=== PATIENT | female | born 1990 | race Caucasian/White ===

== ENCOUNTER 2021-12-26 11:04 | Emergency (ER) | payer MEDICAID ==
[2021-12-26] MEDS ORDERED: Sodium Chloride 0.9% 1,000 ML IV ONE (12:06)
[2021-12-26] MEDS ORDERED: Ketorolac 30 MG/ML SDV IVPUSH ONE (12:06)
[2021-12-26] MEDS ORDERED: Sodium Chloride 0.9% 2.5 ML Syringe FLUSH PRN (12:06)
[2021-12-26] MEDS ORDERED: Ondansetron 4 MG/2 ML SDV IVPUSH ONE (12:06)
[2021-12-26] MEDS ORDERED: Sodium Chloride 0.9% 10 ML Syringe FLUSH PRN (12:06)
[2021-12-26 13:52] LABS: CARBON DIOXIDE,CO2 28.8 mmol/L (21.0-32.0); POTASSIUM,K 3.5 mmol/L (3.5-5.1)
== END 2021-12-26 14:21 | disposition home or self-care (01) ==
LOC: MW.ED 11:04
DX: K80.20 Calculus of gallbladder without cholecystitis without obstruction (principal); K21.9 Gastro-esophageal reflux disease without esophagitis; F17.210 Nicotine dependence, cigarettes, uncomplicated
CPT/HCPCS: 36415; 76705; 80053; 81001; 81025; 85025; 96361; 96374; 96375; 99284; J1885; J2405; J3490; J7030

== ENCOUNTER 2022-02-26 04:28 | Inpatient (IN) | payer SELFPAY ==
[2022-02-26] MEDS ORDERED: Morphine 4 MG/ML VIAL IVPUSH ONE ×2 (04:44→06:42)
[2022-02-26] MEDS ORDERED: Lactated Ringers 1,000 ML IV STA (04:44)
[2022-02-26] MEDS ORDERED: Ondansetron 4 MG/2 ML SDV IVPUSH ONE (04:44)
[2022-02-26 05:34] LABS: CARBON DIOXIDE,CO2 29.1 mmol/L (21.0-32.0); POTASSIUM,K 3.8 mmol/L (3.5-5.1)
[2022-02-26] MEDS ORDERED: Iopamidol 755 MG/ML 500 ML Multipack Bottle IVPUSH STA (05:58)
[2022-02-26] MEDS ORDERED: cefTRIAXone 2 GM in Premix Bag 1 BAG IV ONE (06:39)
[2022-02-26] MEDS ORDERED: cefTRIAXone 2 GM/50 ML BAG ONE ×2 (06:42→06:43)
[2022-02-26] MEDS ORDERED: Morphine 2 MG/ML SYRINGE IVPUSH PRN (14:25)
[2022-02-26] MEDS ORDERED: Ondansetron 4 MG Tab.DIS PO PRN (14:25)
[2022-02-26] MEDS: Piperacillin/Tazobactam 3.375 GM in Sodium Chloride 0.9% 50 ML IV SCH ×2 (15:52→21:03)
[2022-02-27] MEDS: Piperacillin/Tazobactam 3.375 GM in Sodium Chloride 0.9% 50 ML IV SCH ×4 (03:03→21:30)
[2022-02-27 07:49] LABS: CARBON DIOXIDE,CO2 26.8 mmol/L (21.0-32.0); POTASSIUM,K 3.7 mmol/L (3.5-5.1)
[2022-02-27] MEDS: Acetaminophen/HYDROcodone 325-5 MG Tab PO PRN (15:56)
[2022-02-28] MEDS: Lactated Ringers 1,000 ML IV SCH ×2 (00:06→23:07)
[2022-02-28] MEDS: Piperacillin/Tazobactam 3.375 GM in Sodium Chloride 0.9% 50 ML IV SCH ×3 (03:16→18:56)
[2022-02-28 06:50] LABS: CARBON DIOXIDE,CO2 26.9 mmol/L (21.0-32.0)
[2022-02-28] MEDS ORDERED: fentaNYL 50 MCG/ML SDV IVPUSH PRN (09:40)
[2022-02-28] MEDS ORDERED: Albuterol 0.083% 2.5 MG/3 ML Neb Soln NEB PRN (09:40)
[2022-02-28] MEDS ORDERED: Metoclopramide 10 MG/2 ML SDV IVPUSH PRN (09:40)
[2022-02-28] MEDS ORDERED: Naloxone 0.4 MG/ML SDV IVPUSH PRN (09:40)
[2022-02-28] MEDS ORDERED: Ondansetron 4 MG/2 ML SDV IVPUSH PRN ×2 (09:40→17:50)
[2022-02-28] MEDS ORDERED: Famotidine 20 MG/2 ML SDV IVPUSH ONE (10:00)
[2022-02-28] MEDS ORDERED: Propofol 200 MG/20 ML SDV ONE ×3 (10:29→18:34)
[2022-02-28] MEDS ORDERED: fentaNYL 250 MCG/5 ML SDV ONE (10:29)
[2022-02-28] MEDS ORDERED: Ropivacaine 0.5% 5 MG/ML 30 ML SDV ONE (10:40)
[2022-02-28] MEDS ORDERED: Bupivacaine 0.25% 30 ML SDV ONE (11:50)
[2022-02-28] MEDS ORDERED: Indocyanine Green 25 MG SDV ONE (11:53)
[2022-02-28] MEDS ORDERED: fentaNYL 100 MCG/2 ML SDV ONE ×7 (13:31→16:17)
[2022-02-28] MEDS ORDERED: Ketamine 500 mg/10 ML MDV ONE (15:55)
[2022-02-28] MEDS ORDERED: Rocuronium Bromide 50 MG/5 ML Syringe ONE (16:11)
[2022-02-28] MEDS ORDERED: Bupivacaine 0.5% 30 ML SDV ONE (17:01)
[2022-02-28] MEDS ORDERED: HYDROmorphone 2 MG/ML Syringe ONE (17:42)
[2022-02-28] MEDS ORDERED: Cyclobenzaprine 5 MG Tab PO PRN (17:50)
[2022-02-28] MEDS ORDERED: HYDROmorphone 1 MG/ML Syringe IVPUSH PRN (17:50)
[2022-02-28] MEDS ORDERED: Lactated Ringers 1,000 ML IV SCH (18:00)
[2022-02-28] MEDS: HYDROmorphone 1 MG/ML Syringe IVPUSH PRN ×2 (18:30→18:48)
[2022-02-28] MEDS: Acetaminophen 1,000 MG in Premix Bag 1 BAG IV SCH (20:06)
[2022-02-28] MEDS ORDERED: Glycopyrrolate 0.2 MG/ML SDV ONE (20:26)
[2022-02-28] MEDS ORDERED: Phenylephrine HCl In 0.9% NaCl 1 MG/10 ML Vial ONE (20:26)
[2022-02-28] MEDS ORDERED: Sugammadex Sodium 200 MG/2 ML VIAL ONE (20:26)
[2022-02-28] MEDS ORDERED: Dexamethasone 4 MG/ML 5 ML MDV ONE (20:26)
[2022-02-28] MEDS ORDERED: Ondansetron 4 MG/2 ML SDV ONE (20:26)
[2022-02-28] MEDS ORDERED: ePHEDrine 50 MG/ML SDV ONE (20:26)
[2022-02-28] MEDS ORDERED: Water For Injection, Sterile 40 ML ONE (20:28)
[2022-03-01] MEDS: Ketorolac 30 MG/ML SDV IVPUSH SCH ×4 (00:09→12:17)
[2022-03-01] MEDS: Acetaminophen 1,000 MG in Premix Bag 1 BAG IV SCH ×2 (02:17→11:42)
[2022-03-01] MEDS: Piperacillin/Tazobactam 3.375 GM in Sodium Chloride 0.9% 50 ML IV SCH ×4 (02:17→14:52)
[2022-03-01 06:38] LABS: CARBON DIOXIDE,CO2 24.1 mmol/L (21.0-32.0)
[2022-03-01] MEDS: Omeprazole 20 MG Cap.CR PO SCH (09:14)
[2022-03-01] MEDS ORDERED: Acetaminophen 1,000 MG in Premix Bag 1 BAG IV PRN (10:31)
[2022-03-01] MEDS ORDERED: Simethicone 80 MG Tab.Chew PO PRN (17:58)
[2022-03-01] MEDS: Acetaminophen/HYDROcodone 325-5 MG Tab PO PRN (20:34)
[2022-03-01] MEDS: Amoxicillin/Clavulanate K 500-125 MG Tab PO SCH (20:58)
[2022-03-02] MEDS: Omeprazole 20 MG Cap.CR PO SCH (06:45)
[2022-03-02 07:29] LABS: CARBON DIOXIDE,CO2 28.5 mmol/L (21.0-32.0); POTASSIUM,K 3.6 mmol/L (3.5-5.1)
[2022-03-02] MEDS: Amoxicillin/Clavulanate K 500-125 MG Tab PO SCH (10:30)
[2022-03-02] MEDS: Acetaminophen/HYDROcodone 325-5 MG Tab PO PRN (10:30)
== END 2022-03-02 10:33 | disposition home or self-care (01) | DRG 416 ==
LOC: MW.ED 04:28 → MW.MS 14:58 → OBSVTOIN 02-28 17:50 → MW.MS 03-01 17:18
PROVIDERS: ADMIT Surgery; ATTEND Surgery
PROC: 0FT40ZZ Resection of Gallbladder, Open Approach (ICD-10-PCS; principal; 2022-02-28)
PROC: 0FJ44ZZ Inspection of Gallbladder, Percutaneous Endoscopic Approach (ICD-10-PCS; 2022-02-28)
DX: K80.12 Calculus of gallbladder with acute and chronic cholecystitis without obstruction (principal); F17.210 Nicotine dependence, cigarettes, uncomplicated; Z20.822 Contact with and (suspected) exposure to COVID-19
CPT/HCPCS: 00790; 36415; 64488; 74177; 74177-26; 74181; 74181-26; 76705; 76705-26; 80053; 81003; 81025; 83690; 84703; 85025; 86850; 86900; 86901; 99285; A9270-GY; J0131; J0696; J1100; J1170; J1885; J2270; J2405; J2543; J2704; J2795; J3010; J3490; J7030; J7120; Q9967; U0002

== ENCOUNTER 2022-03-05 16:03 | Emergency (ER) | payer SELFPAY ==
[2022-03-05] MEDS ORDERED: Ondansetron 4 MG/2 ML SDV IVPUSH ONE (16:38)
[2022-03-05] MEDS ORDERED: fentaNYL 50 MCG/ML SDV IVPUSH ONE (16:38)
[2022-03-05] MEDS ORDERED: Sodium Chloride 0.9% 2.5 ML Syringe FLUSH PRN (16:38)
[2022-03-05] MEDS ORDERED: Sodium Chloride 0.9% 10 ML Syringe FLUSH PRN (16:38)
[2022-03-05] MEDS ORDERED: Ketorolac 30 MG/ML SDV IVPUSH ONE (16:38)
[2022-03-05] MEDS ORDERED: Sodium Chloride 0.9% 1,000 ML IV ONE (16:38)
[2022-03-05] MEDS ORDERED: Ondansetron 4 MG Tab.DIS PO ONE (16:53)
[2022-03-05] MEDS ORDERED: Ondansetron 4 MG Tab.DIS ONE (16:54)
== END 2022-03-05 17:00 | disposition home or self-care (01) ==
LOC: MW.ED 16:03
DX: G89.18 Other acute postprocedural pain (principal); R10.11 Right upper quadrant pain; Z79.899 Other long term (current) drug therapy; Z90.49 Acquired absence of other specified parts of digestive tract
CPT/HCPCS: 99284; A9270; 99283

== ENCOUNTER 2022-03-08 21:07 | Emergency (ER) | payer SELFPAY ==
[2022-03-08] MEDS ORDERED: Sodium Chloride 0.9% 1,000 ML IV ONE (22:11)
[2022-03-08] MEDS ORDERED: Sodium Chloride 0.9% 10 ML Syringe FLUSH PRN (22:11)
[2022-03-08] MEDS ORDERED: fentaNYL 50 MCG/ML SDV IVPUSH ONE (22:11)
[2022-03-08] MEDS ORDERED: Ondansetron 4 MG/2 ML SDV IVPUSH ONE (22:11)
[2022-03-08] MEDS ORDERED: Sodium Chloride 0.9% 2.5 ML Syringe FLUSH PRN (22:11)
[2022-03-09 00:01] LABS: CARBON DIOXIDE,CO2 27.9 mmol/L (21.0-32.0)
[2022-03-09] MEDS ORDERED: Iopamidol 755 MG/ML 500 ML Multipack Bottle IVPUSH ONE (00:34)
[2022-03-09] MEDS ORDERED: fentaNYL 50 MCG/ML SDV IVPUSH ONE ×2 (02:18→04:52)
[2022-03-09] MEDS ORDERED: Piperacillin/Tazobactam 4.5 GM in Sodium Chloride 0.9% 100 ML IV ONE (04:15)
[2022-03-09] MEDS ORDERED: Ketorolac 30 MG/ML SDV IVPUSH ONE (04:53)
[2022-03-09] MEDS ORDERED: LORazepam 1 MG Tab PO ONE (11:55)
== END 2022-03-09 12:27 ==
LOC: MW.ED 21:07
DX: K83.8 Other specified diseases of biliary tract (principal); F17.210 Nicotine dependence, cigarettes, uncomplicated; Z79.899 Other long term (current) drug therapy; Z90.49 Acquired absence of other specified parts of digestive tract; Z20.822 Contact with and (suspected) exposure to COVID-19
CPT/HCPCS: 36415; 74177; 80053; 81001; 83605; 83690; 84703; 85025; 87040; 87635; 96361; 96365; 96375; 96376; 99285; A9270; J1885; J2405; J2543; J3010; J3490; J7030; Q9967; 99284; U0002

== ENCOUNTER 2023-03-15 14:45 | Emergency (ER) | payer SELFPAY ==
[2023-03-15] MEDS ORDERED: Penicillin V Potassium 500 MG Tab PO STA (17:29)
[2023-03-15] MEDS ORDERED: Acetaminophen/oxyCODONE 325-5 MG Tab PO ONE (17:29)
[2023-03-15] MEDS ORDERED: Benzocaine 20% Topical Spray UD MUCMEM ONE (17:32)
== END 2023-03-15 17:51 | disposition home or self-care (01) ==
LOC: MW.ED 14:45
DX: S02.5XXB Fracture of tooth (traumatic), initial encounter for open fracture (principal); Z87.891 Personal history of nicotine dependence; X58.XXXA Exposure to other specified factors, initial encounter
CPT/HCPCS: 99282; A9270; 99283

== ENCOUNTER 2023-06-21 10:50 | Emergency (ER) | payer SELFPAY | END 2023-06-21 11:20 | disposition home or self-care (01) | LOC: MW.ED 10:50 | DX: K04.7 Periapical abscess without sinus (principal); K05.6 Periodontal disease, unspecified; Z90.49 Acquired absence of other specified parts of digestive tract | CPT/HCPCS: 99282; 99283 ==

== ENCOUNTER 2024-05-09 04:00 | Emergency (ER) | payer SELFPAY ==
[2024-05-09] MEDS: Acetaminophen 500 MG Tab PO ONE (05:02)
[2024-05-09] MEDS: Lidocaine 2% Viscous Solution 15 ML UD PO ONE (05:03)
[2024-05-09] MEDS: Benzocaine 20% Topical Spray UD MUCMEM ONE (05:03)
[2024-05-09] MEDS: Ketorolac 30 MG/ML SDV IM ONE (05:05)
== END 2024-05-09 05:14 | disposition home or self-care (01) ==
LOC: MW.ED 04:00
DX: K02.9 Dental caries, unspecified (principal); K08.89 Other specified disorders of teeth and supporting structures; Z90.49 Acquired absence of other specified parts of digestive tract
CPT/HCPCS: 96372; 99282; A9270; J1885; 99283

== ENCOUNTER 2024-09-19 21:31 | Emergency (ER) | payer MEDICAID ==
[2024-09-19] MEDS: Alum Hydrox/Mag Hydrox/Simeth 15 ML, Lidocaine 2% 5 ML PO ONE (23:09)
[2024-09-19] MEDS: Morphine 4 MG/ML Syringe IVPUSH ONE (23:57)
[2024-09-19] MEDS: Ondansetron 4 MG/2 ML SDV IVPUSH ONE (23:57)
[2024-09-19] MEDS: Sodium Chloride 0.9% 1,000 ML IV ONE (23:57)
[2024-09-20 00:17] LABS: BASOPHILS ABSOLUTE AUTO 0.02 K/uL (0.00-0.20); BASOPHILS PERCENT AUTO 0.2 % (0.0-1.0); EOSINOPHILS ABSOLUTE AUTO 0.01 K/uL (0.00-0.45); EOSINOPHILS PERCENT AUTO 0.1 % (0.0-6.0); HEMATOCRIT 38.8 % (37.0-47.0); IMMATURE GRAN ABSOLUTE AUTO 0.05 K/uL (0.00-0.05); IMMATURE GRAN PERCENT AUTO 0.4 % (0.0-0.4); LYMPHOCYTES ABSOLUTE AUTO 0.67 K/uL (1.00-4.80); LYMPHOCYTES PERCENT AUTO 5.9 % (24.0-44.0); MEAN CORPUSCULAR HEMOGLOBIN 27.7 pg (28.0-32.0); MEAN CORPUSCULAR HGB CONC 33.5 g/dL (32.0-36.0); MEAN CORPUSCULAR VOLUME 82.6 fL (83.0-99.0); MEAN PLATELET VOLUME 8.9 fL (9.4-12.3); MONOCYTES ABSOLUTE AUTO 0.87 K/uL (0.00-0.80); MONOCYTES PERCENT AUTO 7.6 % (0.0-8.0); NEUTROPHILS ABSOLUTE AUTO 9.77 K/uL (1.80-7.70); NEUTROPHILS PERCENT AUTO 85.8 % (41.0-71.0); PLATELET COUNT,PLT 310 K/uL (150-400); WHITE BLOOD CELL COUNT,WBC 11.39 K/uL (3.9-11.3)
[2024-09-20 00:36] LABS: APPEARANCE,URINE CLOUDY; GLUCOSE,URINE NEGATIVE (NEGATIVE); KETONES,URINE 15 mg/dL (NEGATIVE); LEUKOCYTE ESTERASE,URINE NEGATIVE (NEGATIVE); NITRITE,URINE NEGATIVE (NEGATIVE); OCCULT BLOOD,URINE NEGATIVE (NEGATIVE); PH,URINE 8.5 (5.0-8.0); PROTEIN,URINE 100 mg/dL (NEGATIVE)
[2024-09-20 00:41] LABS: BILIRUBIN,URINE MODERATE (NEGATIVE); COLOR,URINE DARK YELLOW
[2024-09-20 00:44] LABS: AMORPHOUS SEDIMENT,URINE MODERATE (NEGATIVE); BACTERIA,URINE FEW (NEGATIVE); EPITHELIAL CELLS,URINE FEW (NONE-FEW); MUCUS,URINE LIGHT (NONE-MOD); RBC,URINE 0-1 (0-2/HPF); WBC,URINE 0-1 (0-5/HPF)
[2024-09-20 00:46] LABS: A/G RATIO 0.9 (0.9-1.6); ALANINE AMINOTRANSFERASE,ALT 402 IU/L (14-63); ALBUMIN 3.4 g/dL (3.4-5.0); ALKALINE PHOSPHATASE 107 U/L (46-116); ASPARTATE AMNIOTRANSFERASE,AST 456 IU/L (15-37); BILIRUBIN TOTAL 1.8 mg/dL (0.2-1.0); BLOOD UREA NITROGEN,BUN 8 mg/dL (7.0-18.0); CALCIUM 8.7 mg/dL (8.5-10.1); CARBON DIOXIDE,CO2 26.9 mmol/L (21.0-32.0); CHLORIDE,CL 103 mmol/L (98-107); CREATININE 0.8 mg/dL (0.6-1.0); EST CRCL DRUG DOSING (CG) 92.68 mL/min; GLUCOSE RANDOM 132 mg/dL (74-106); LIPASE 18 U/L (16-77); POTASSIUM,K 3.6 mmol/L (3.5-5.1); PROTEIN TOTAL,TP 7.1 g/dL (6.4-8.2); SODIUM,NA 140 mmol/L (136-145)
[2024-09-20] MEDS ORDERED: Ibuprofen 600 MG Tab PO ONE (01:00)
[2024-09-20 01:03] LABS: ESTIMATED GFR 100 mL/min (>60)
== END 2024-09-20 02:04 | disposition left against medical advice (07) ==
LOC: MW.ED 21:31
DX: K29.70 Gastritis, unspecified, without bleeding (principal); K59.00 Constipation, unspecified; R79.89 Other specified abnormal findings of blood chemistry
CPT/HCPCS: 36415; 74018; 80053; 81001; 83690; 84484; 85025; 93005; 96361; 96374; 96375; 99284; A9270; J2270; J2405; J7030; 93010

== ENCOUNTER 2024-09-20 07:08 | Emergency (ER) | payer MEDICAID ==
[2024-09-20 07:49] LABS: HEMATOCRIT 41.3 % (37.0-47.0); HEMOGLOBIN 13.9 g/dL (12.0-16.0); MEAN CORPUSCULAR HEMOGLOBIN 27.7 pg (28.0-32.0); MEAN CORPUSCULAR HGB CONC 33.7 g/dL (32.0-36.0); MEAN CORPUSCULAR VOLUME 82.3 fL (83.0-99.0); MEAN PLATELET VOLUME 9.1 fL (9.4-12.3); PLATELET COUNT,PLT 342 K/uL (150-400); RED BLOOD CELL COUNT 5.02 M/uL (4.10-5.30); WHITE BLOOD CELL COUNT,WBC 15.33 K/uL (3.9-11.3)
[2024-09-20] MEDS: Pantoprazole 40 MG in Sodium Chloride 0.9% 10 ML IVPUSH ONE (07:50)
[2024-09-20] MEDS: Sodium Chloride 0.9% 1,000 ML IV STA (07:50)
[2024-09-20] MEDS: Morphine 4 MG/ML Syringe IVPUSH ONE (07:50)
[2024-09-20] MEDS: Ondansetron 4 MG/2 ML SDV IVPUSH ONE (07:51)
[2024-09-20 08:12] LABS: A/G RATIO 0.9 (0.9-1.6); ALBUMIN 3.5 g/dL (3.4-5.0); BILIRUBIN TOTAL 3.7 mg/dL (0.2-1.0); CALCIUM 8.7 mg/dL (8.5-10.1); CARBON DIOXIDE,CO2 23.6 mmol/L (21.0-32.0); CREATININE 0.8 mg/dL (0.6-1.0); EST CRCL DRUG DOSING (CG) 90.84 mL/min; POTASSIUM,K 3.8 mmol/L (3.5-5.1); PROTEIN TOTAL,TP 7.5 g/dL (6.4-8.2)
[2024-09-20] MEDS: HYDROmorphone 1 MG/ML Syringe IVPUSH ONE ×3 (08:37→13:09)
[2024-09-20] MEDS: metroNIDAZOLE/Normal Saline 500 MG in Premix Bag 1 BAG IV ONE (08:38)
[2024-09-20] MEDS: cefTRIAXone 2 GM in Sodium Chloride 0.9% 50 ML IV ONE (08:41)
[2024-09-20 08:43] LABS: LYMPHOCYTES ABSOLUTE MAN 0.31 K/uL (1.00-4.80); LYMPHOCYTES PERCENT MAN 2 % (24-44); MONOCYTES ABSOLUTE MAN 1.23 K/uL (0.00-0.80); MONOCYTES PERCENT MAN 8 % (0-8); SEG NEUTROPHILS PERCENT MAN 90 % (41-71)
[2024-09-20] MEDS ORDERED: Sodium Chloride 0.9% 2.5 ML Syringe FLUSH PRN (08:52)
[2024-09-20] MEDS ORDERED: Sodium Chloride 0.9% 10 ML Syringe FLUSH PRN (08:52)
== END 2024-09-20 13:18 ==
LOC: MW.ED 07:08
DX: K83.09 Other cholangitis (principal); Z90.49 Acquired absence of other specified parts of digestive tract
CPT/HCPCS: 36415; 76705; 80053; 83605; 83690; 85025; 87040; 87154; 96361; 96365; 96368; 96375; 96376; 99285; J0696; J1171; J1836; J2270; J2405; J2470; J7030; 99284